=== PATIENT | male | born 1945 | race Two or more races ===

== ENCOUNTER 2020-04-16 12:19 | Inpatient (IN) | payer BC, OTHER ==
[~2020-04-16] VITALS: Ht 167.6 cm; Wt 87.5 kg
[2020-04-16] MEDS ORDERED: ANGIOMAX 250 MG VIAL IV ONE (12:27)
[2020-04-16] MEDS ORDERED: NITROGLYCERIN 5MG/ML 10ML VIAL IV ONE (12:27)
[2020-04-16] MEDS ORDERED: ATROPINE SULF 1 MG/10ml SYR ONE (12:27)
[2020-04-16] MEDS ORDERED: fentaNYL CITRATE 100 MCG/2 ML VL ONE (12:28)
[2020-04-16] MEDS ORDERED: DOPamine 1600MCG/ML D5W 0 ML IV ONE (12:28)
[2020-04-16] MEDS ORDERED: SODIUM CHL 0.9% 100 ML ONE (12:28)
[2020-04-16] MEDS ORDERED: MIDAZOLAM HCL 1MG/1ML-2 ML VIAL ONE (12:28)
[2020-04-16] MEDS ORDERED: EPINEPHrine HCL 1 MG/10 ML SYRG ONE (12:28)
[2020-04-16] MEDS ORDERED: LIDOCAINE 2%HCL (LOCAL ANESTH.) INJ 20ML MDV ONE (12:29)
[2020-04-16] MEDS ORDERED: IOHEXOL 350 MG/ML 100ML IJ ONE (12:29)
[2020-04-16] MEDS ORDERED: ONDANSETRON HCL 4 MG/2 ML VIAL IV ONE (12:30)
[2020-04-16] MEDS ORDERED: SODIUM CHLORIDE 0.9% 1,000 ML IV ONE (12:30)
[2020-04-16] MEDS ORDERED: MORPHINE SULFATE 4 MG/ML SYR/VIAL IV ONE (12:30)
[2020-04-16 13:04] LABS: Basophils # (auto) 0.1 10 ^3/uL (0-0.2); Basophils % (auto) 1.2 % (0.0-2.0); Mean Corpuscular Volume 85.1 fL (80.0-100.0); Monocytes # (auto) 0.6 10 ^3/uL (0-1.3); Neutrophils # (auto) 3.1 10 ^3/uL (1.6-8.6); Nucleated Red Blood Cells % 0.1 %; Platelet Count (auto) 211 10^3/uL (140-450)
[2020-04-16 13:05] LABS: Eosinophils # (auto) 0.2 10 ^3/uL (0-0.8); Eosinophils % (auto) 2.8 % (0.0-7.0); Hematocrit 52.7 % (41.0-53.0); Hemoglobin 18.2 g/dL (13.5-17.5); Lymphocytes % (auto) 33.9 % (10.0-50.0); Mean Corpuscular Hemoglobin 29.3 pg (28.0-32.0); Mean Corpuscular Hgb Conc. 34.5 g/dL (32.0-36.0); Monocytes % (auto) 10.6 % (0.0-12.0); Neutrophils % (auto) 51.5 % (37.0-80.0); Red Cell Distribution Width 16.1 % (11.8-14.3); White Blood Cell 5.9 10^3/uL (4.4-10.8)
[2020-04-16] MEDS ORDERED: EPTIFIBATIDE INJ (2MG/ML) 10ML VIAL IV ONE ×2 (13:05→13:13)
[2020-04-16 13:09] LABS: Albumin 3.4 g/dL (3.4-5.0); Anion Gap 7 (5-15); Blood Urea Nitrogen 24 mg/dL (7-18); Calcium 8.9 mg/dL (8.5-10.1); Carbon Dioxide 23 mmol/L (21-32); Chloride 105 mmol/L (98-107); Glucose 316 mg/dL (74-106); Sodium 135 mmol/L (136-145)
[2020-04-16] MEDS ORDERED: ADENOSINE 6 MG/2 ML INJ IV ONE (13:13)
[2020-04-16 13:15] LABS: Alanine Aminotransferase 44 U/L (16-61); Alkaline Phosphatase 98 U/L (45-117); Aspartate Aminotransferase 25 U/L (15-37); BUN/Creatinine Ratio 17.9; Bilirubin, Total 0.7 mg/dL (0.2-1.0); GFR African American 67 mL/min; GFR Non-African American 56 mL/min; Total Protein 7.3 g/dL (6.4-8.2)
[2020-04-16] MEDS ORDERED: TICAGRELOR 90 MG TAB ONE (13:25)
[2020-04-16] MEDS ORDERED: ATO40T PO (15:25)
[2020-04-16] MEDS ORDERED: METO25TA36 PO (15:25)
[2020-04-16] MEDS ORDERED: LISI-275 PO (15:25)
[2020-04-16] MEDS ORDERED: METF-372 PO (15:25)
[2020-04-16] MEDS ORDERED: INSU1.2I SC (15:25)
[2020-04-16] MEDS ORDERED: NITR0.4S29 SL (15:25)
[2020-04-16] MEDS ORDERED: ONDANSETRON HCL 4 MG/2 ML VIAL IV PRN (17:00)
[2020-04-16] MEDS ORDERED: ACETAMINOPHEN 500 MG TAB PO PRN (17:00)
[2020-04-16] MEDS ORDERED: TEMAZEPAM 15 MG CAP PO PRN (17:00)
[2020-04-16] MEDS ORDERED: LACTULOSE 20Gm/30ML SOLN PO PRN (17:00)
[2020-04-16] MEDS ORDERED: MORPHINE SULF INJ 2 MG/ML SYRINGE 1ML IV PRN (17:00)
[2020-04-16] MEDS ORDERED: DEXTROSE (50%) 50ML SYRG IV PRN (17:00)
[2020-04-16] MEDS ORDERED: traMADol HCL 50 MG TAB PO PRN (17:00)
[2020-04-16] MEDS: SODIUM CHLORIDE 0.9% 1,000 ML IV SCH (19:31)
[2020-04-16] MEDS: InsuLIN REG 1unit/0.01ml Soln (100units/ml) SC SCH (19:36)
[2020-04-16] MEDS: ACCU-CHEK COMFORT CURVE STRIP VI SCH ×2 (19:42→22:00)
[2020-04-16] MEDS ORDERED: ASPI81CH43 PO (20:39)
[2020-04-16] MEDS ORDERED: ATORVASTATIN 20 MG TAB PO SCH (22:00)
[2020-04-16] MEDS: METOPROLOL TARTRATE 25 MG TAB PO SCH (22:00)
[2020-04-16] MEDS: ENOXAPARIN SOD 80 MG/0.8ML SYRINGE SC SCH (22:00)
[2020-04-17] MEDS: InsuLIN REG 1unit/0.01ml Soln (100units/ml) SC SCH ×3 (00:45→12:18)
[2020-04-17 01:54] VITALS: BP 103/59
[2020-04-17 05:00] VITALS: BP 99/59
[2020-04-17] MEDS: SODIUM CHLORIDE 0.9% 1,000 ML IV SCH (05:54)
[2020-04-17] MEDS: ACCU-CHEK COMFORT CURVE STRIP VI SCH ×2 (06:08→12:14)
[2020-04-17 09:00] VITALS: BP 96/55
[2020-04-17] MEDS ORDERED: PANTOPRAZOLE 40 MG TAB PO SCH (10:00)
[2020-04-17] MEDS ORDERED: ASPirin 81 mg TAB PO SCH ×2 (10:00)
[2020-04-17] MEDS ORDERED: NITROGLYCERIN 0.2MG/HR TOPICAL PATCH TD SCH (10:00)
[2020-04-17] MEDS ORDERED: TICAGRELOR 90 MG TAB PO SCH (10:00)
[2020-04-17] MEDS: ENOXAPARIN SOD 80 MG/0.8ML SYRINGE SC SCH (10:52)
[2020-04-17] MEDS: METOPROLOL TARTRATE 25 MG TAB PO SCH (10:53)
[2020-04-17 13:07] VITALS: BP 96/57
[2020-04-17] MEDS ORDERED: TICA90TA PO (13:12)
[2020-04-17] MEDS ORDERED: ASPI81CH43 PO (13:12)
[2020-04-17 14:42] VITALS: BP 96/57
[2020-04-17] MEDS ORDERED: MUPI2OIN2 (15:38)
[2020-04-17] MEDS ORDERED: MUPIROCIN 2% OINT 15gm or 22gm TOP SCH (22:00)
== END 2020-04-17 16:05 | disposition home health service (06) | DRG 246 ==
LOC: EDBD 12:19 → ER 12:19 → OR 1 12:51 → TELE 12:52 → TELE-CENTR 04-17 01:45
PROVIDERS: ADMIT Internal Medicine Cardiovascular Disease; ATTEND Internal Medicine
PROC: B2111ZZ Fluoroscopy of Multiple Coronary Arteries using Low Osmolar Contrast (ICD-10-PCS; principal; 2020-04-16)
PROC: 027036Z Dilation of Coronary Artery, One Artery with Three Drug-eluting Intraluminal Devices, Percutaneous Approach (ICD-10-PCS; 2020-04-16)
PROC: 4A023N7 Measurement of Cardiac Sampling and Pressure, Left Heart, Percutaneous Approach (ICD-10-PCS; 2020-04-16)
PROC: 3E033PZ Introduction of Platelet Inhibitor into Peripheral Vein, Percutaneous Approach (ICD-10-PCS; 2020-04-16)
DX: T82.855A Stenosis of coronary artery stent, initial encounter (principal); I21.19 ST elevation (STEMI) myocardial infarction involving other coronary artery of inferior wall; E11.65 Type 2 diabetes mellitus with hyperglycemia; I10 Essential (primary) hypertension; D75.1 Secondary polycythemia; I25.10 Atherosclerotic heart disease of native coronary artery without angina pectoris; Z20.828 Contact with and (suspected) exposure to other viral communicable diseases; Y83.1 Surgical operation with implant of artificial internal device as the cause of abnormal reaction of the patient, or of later complication, without mention of misadventure at the time of the procedure; Z96.653 Presence of artificial knee joint, bilateral; Y92.89 Other specified places as the place of occurrence of the external cause; Z88.6 Allergy status to analgesic agent; E78.5 Hyperlipidemia, unspecified
CPT/HCPCS: 36415; 71045; 80053; 82962; 83036; 83735; 83880; 84484; 85025; 85379; 86850; 86900; 86901; 87081; 87426; 92928; 93005; 93306; 93458; 99152; 99153; C1874; C1887; G0378; J0153; J1815; J2250; J3490

== ENCOUNTER 2021-12-18 15:14 | Emergency (ER) | payer BC ==
[~2021-12-18] VITALS: Ht 165.1 cm; Wt 90.7 kg
[~2021-12-18 15:14] MED LIST: ASPI81CH43 PO; ATO40T PO; INSU1.2I SC; LISI-275 PO; METF-372 PO; METO25TA36 PO; MUPI2OIN2; NITR0.4S29 SL; TICA90TA PO
[2021-12-18 15:25] VITALS: BP 132/73
[2021-12-18 16:49] LABS: Basophils # (auto) 0.1 10 ^3/uL (0-0.2); Basophils % (auto) 1.7 % (0.0-2.0); Eosinophils # (auto) 0.3 10 ^3/uL (0-0.8); Eosinophils % (auto) 5.3 % (0.0-7.0); Hematocrit 51.4 % (41.0-53.0); Hemoglobin 15.9 g/dL (13.5-17.5); Lymphocytes # (auto) 1.6 10 ^3/uL (0.4-5.4); Lymphocytes % (auto) 26.3 % (10.0-50.0); Mean Corpuscular Hgb Conc. 30.9 g/dL (32.0-36.0); Mean Corpuscular Volume 80.9 fL (80.0-100.0); Monocytes # (auto) 0.5 10 ^3/uL (0-1.3); Monocytes % (auto) 8.7 % (0.0-12.0); Neutrophils # (auto) 3.5 10 ^3/uL (1.6-8.6); Nucleated Red Blood Cells % 0.1 %; Red Blood Cells 6.35 10^6/uL (4.5-5.90); Red Cell Distribution Width 17.6 % (11.8-14.3); White Blood Cell 6.1 10^3/uL (4.4-10.8)
[2021-12-18 16:58] LABS: Albumin 2.9 g/dL (3.4-5.0); BUN/Creatinine Ratio 16.9; Calcium 8.5 mg/dL (8.5-10.1); Potassium 4.5 mmol/L (3.5-5.1)
[2021-12-18 17:01] LABS: Bilirubin, Total 0.5 mg/dL (0.2-1.0); Total Protein 6.7 g/dL (6.4-8.2)
== END 2021-12-18 19:50 | disposition left against medical advice (07) ==
LOC: EDBD 15:14 → ER 15:14
DX: R07.89 Other chest pain (principal); Z53.21 Procedure and treatment not carried out due to patient leaving prior to being seen by health care provider
CPT/HCPCS: 36415; 71045; 80053; 84484; 85025; 93005